=== PATIENT | male | born 1985 | race Two or more races ===

== ENCOUNTER → 2020-03-10 | Outpatient (CLI) | payer BC ==
--- NOTE | 2020-03-10 17:08 | KCIC ---
Clinical indications: Hypothyroidism.. Findings: The longitudinal and AP and transverse dimensions of the right lobe of the thyroid gland are 4.3 cm x 2.1 cm x 1.7 cm respectively. The right lobe is heterogeneous in appearance. The longitudinal and AP and transverse dimensions of the left lobe are 5.7 cm x 1.8 cm x 1.6 cm respectively. The left lobe is heterogeneous in appearance. The isthmus is homogeneous in appearance and measures 2.5 mm in thickness. Impression: Heterogeneous thyroid gland which may be seen with Moe's thyroiditis. Electronically signed by: Goran Matos MD (03/10/2020 5:04 PM) [id number]
== END ==
LOC: KCIC US 12:25
PROVIDERS: ATTEND Nurse Practitioner Family
DX: E03.9 Hypothyroidism, unspecified (principal); E06.9 Thyroiditis, unspecified
CPT/HCPCS: 76536